=== PATIENT | female | born 1950 | race Caucasian/White ===

== ENCOUNTER 2020-09-12 07:18 | Observation (INO) ==
[2020-09-12] MEDS ORDERED: LIDOCAINE/EPINEPH/TETRACAINE 1 EA SYR EXT STA (07:25)
[2020-09-12] MEDS ORDERED: SODIUM CHLORIDE 0.9% 500 ML IV SCH (07:30)
--- NOTE | 2020-09-12 07:30 | Emergency Department Note ---
History of Present Illness General Chief complaint: Syncope Time Seen by Provider: 09/12/20 07:24 Source: patient and EMS Mode of arrival: EMS Limitations: no limitations History of Present Illness This patient comes in after having a syncopal episode. She was in her usual state of health and had just gone to the bathroom and on the way back to the bed passed out. She does not remember what happened. She hit her head on the floor and has a laceration above the left eye. She thinks her tetanus booster is up-to-date. She is on no blood thinners. She feels fine at present. She had this happen once before. She had diarrhea this morning although tends to have chronic diarrhea. No blood in her stool or melena. Denies chest pain at any point or shortness of breath or palpitations. No abdominal pain. No focal numbness or weakness denies headache. Minimal neck stiffness. No recent illness. 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" Status post tubal ligation Family History Father , 60s Myocardial infarction Coronary heart disease Mother Alzheimer disease Social History Smoking Status: Former smoker Tobacco Type: Cigarettes packs per day: 1.5; Years Smoked: 18; Hx Alcohol Use: Yes Alcohol type: wine Alcohol Intake Frequency: 4 or More x per/Week Alcohol Intake Frequency Comment: 2 - 4oz glasses wine nightly Hx Substance Use: No Preferred Language: Algerian Communication Ability: Effective Registered Nurse Surgical Services Required: No Beliefs That Will Affect Care: None marital status: Current Living Situation: Spouse Other Information That Helps Us Care for You: No Feels Safe at Home: Yes Safety Concerns: Feels Safe At This Time Assistive Devices: Glasses Review of Systems A total of 10 systems reviewed and were otherwise negative Physical Exam Vital Signs Vital Signs - 24 hr 09/12/20 07:21 09/12/20 07:32 09/12/20 07:40 Temperature 36.9 C Temperature Source Oral Pulse Rate 67 65 69 Pulse Rate [Apical] Pulse Rate from SpO2 Sensor 67 65 69 Respiratory Rate 14 16 16 Blood Pressure 145/79 H Blood Pressure [Right Arm] Blood Pressure Mean 96 Blood Pressure Mean [Right Arm] Pulse Oximetry 99 99 98 Oxygen Delivery Method Room Air Sepsis Recent Fever Within 48 Hours No Sepsis New/Unexplained Change in Mental Status N/A Sepsis Action Taken by Nursing No Action Required 09/12/20 07:57 09/12/20 07:58 09/12/20 08:00 Temperature Temperature Source Pulse Rate 80 78 75 Pulse Rate [Apical] Pulse Rate from SpO2 Sensor Respiratory Rate 7 L 18 21 Blood Pressure 143/78 H 143/72 H Blood Pressure [Right Arm] Blood Pressure Mean 92 94 Blood Pressure Mean [Right Arm] Pulse Oximetry Oxygen Delivery Method Sepsis Recent Fever Within 48 Hours Sepsis New/Unexplained Change in Mental Status Sepsis Action Taken by Nursing 09/12/20 08:01 09/12/20 08:10 09/12/20 08:20 Temperature Temperature Source Pulse Rate 76 76 Pulse Rate [Apical] 75 Pulse Rate from SpO2 Sensor Respiratory Rate 16 16 20 Blood Pressure Blood Pressure [Right Arm] 143/78 H Blood Pressure Mean Blood Pressure Mean [Right Arm] 99 Pulse Oximetry 97 Oxygen Delivery Method Room Air Sepsis Recent Fever Within 48 Hours Sepsis New/Unexplained Change in Mental Status Sepsis Action Taken by Nursing 09/12/20 08:30 09/12/20 08:40 09/12/20 08:50 Temperature Temperature Source Pulse Rate 80 80 78 Pulse Rate [Apical] Pulse Rate from SpO2 Sensor Respiratory Rate 16 13 14 Blood Pressure 142/69 H Blood Pressure [Right Arm] Blood Pressure Mean 85 Blood Pressure Mean [Right Arm] Pulse Oximetry Oxygen Delivery Method Sepsis Recent Fever Within 48 Hours Sepsis New/Unexplained Change in Mental Status Sepsis Action Taken by Nursing 09/12/20 09:00 Temperature Temperature Source Pulse Rate 77 Pulse Rate [Apical] Pulse Rate from SpO2 Sensor Respiratory Rate 23 Blood Pressure 148/71 H Blood Pressure [Right Arm] Blood Pressure Mean 98 Blood Pressure Mean [Right Arm] Pulse Oximetry Oxygen Delivery Method Sepsis Recent Fever Within 48 Hours Sepsis New/Unexplained Change in Mental Status Sepsis Action Taken by Nursing General: Well developed well nourished older female who appears in no acute distress, breathing comfortably on room air. Normal speech [place] Coma Score 15 HEENT: Normal cephalic atraumatic with exception of a slightly jagged 3 cm laceration above the left eye and the left eyebrow. Pupils are equal round and reactive to light. Extraocular movements are intact. Oropharynx is pink with moist mucous membranes. No swelling of the mouth lips or tongue. Neck: Supple with a midline trachea. No meningeal signs or stiffness, no JVD or bruits. No Stridor. Chest: Clear to auscultation bilaterally. No wheezes or rhonchi. No increased work of breathing. Heart: Regular rate and rhythm without murmurs or gallops. Abdomen: Soft nontender, nondistended without rebound guarding or rigidity. Extremities: No cyanosis clubbing or edema. No calf tenderness or assymetry Spine/Back. Non tender to palpation. No CVA tenderness Skin: Good turgor without rashes. Neurologic exam: Cranial nerves two through 12 are intact. Motor and sensation are intact and symmetrical throughout. Procedures Laceration Laceration 1: Site: face Side (If applicable): left Size (cm): 3 Description: irregular (It is linear but curved) Depth: simple, single layer Local Anesthetic: other anesthetic (LET Gel) Pre-repair: wound explored, irrigated extensively and deep structures intact Skin layer closed with: nylon Size (cm): 5-0 Number of sutures: 7 Technique: simple, interrupted Course Administered Medications Sodium Chloride (Nss 1000ml) 1,000 mls @ 75 mls/hr IV .[id number] [facility] Stop: 09/13/20 14:54 Last Admin: 09/12/20 12:57 Dose: 75 mls/hr Documented by: [id number] Levothyroxine Sodium (Levothyroxine Sodium 25 Mcg Tablet) 25 mcg PO DAILYBB [facility] Stop: 10/12/20 12:29 Last Admin: 09/12/20 12:59 Dose: 25 mcg Documented by: [id number] Discontinued Medications Sodium Chloride (Nss) 500 mls @ 999 mls/hr IV .Q31M [facility] Stop: 09/12/20 08:00 Last Infusion: 09/12/20 08:08 Dose: 0 mls/hr Documented by: [id number] Admin: 10/26/20 07:31 Dose: 999 mls/hr Documented by: [id number] Ioversol (Optiray 320 125ml) 119 ml IV ONCE ONE Stop: 09/12/20 14:20 Last Admin: 09/12/20 14:19 Dose: 119 ml Documented by: [id number] Lidocaine (Lidocaine/Epineph/Tetracaine 1 Ea Syr) 1 ea EXT NOW STA Stop: 09/12/20 07:26 Last Admin: 09/12/20 07:34 Dose: 1 ea Documented by: [id number] Medical Decision Making Differential Diagnosis Syncope, head trauma, laceration, electrolyte or metabolic abnormality, anemia, sepsis, dehydration, arrhythmia Medical Records Attestation: I reviewed the patient's medical records. Home Medications Current Medication List: was personally reviewed by me Laboratory Data Attestation: I reviewed the patient's lab results. Result diagrams: 09/12/20 06:50 09/12/20 06:50 Lab Results 09/12/20 09/12/20 09/12/20 Range/Units 06:50 06:50 06:50 WBC 4.19 L (4.8-10.8) K/uL RBC 3.98 L (4.2-5.4) M/uL Hgb 14.0 (12.0-16.0) g/dL Hct 41.7 (37-47) % MCV 104.8 H (80-100) fL MCH 35.2 H (25-34) pg MCHC 33.6 (32-36) g/dL RDW Std Deviation 48.6 H (36.4-46.3) fL RDW Coeff of Joao 12.7 (11.5-14.5) % Plt Count 254 (130-400) K/uL MPV 9.7 (7.4-10.4) fL Immature Gran % (Auto) 0.2 % Neut % (Auto) 36.3 % Lymph % (Auto) 53.0 % [place] % (Auto) 5.5 % Eos % (Auto) 4.8 % Baso % (Auto) 0.2 % Neut # (Auto) 1.52 (1.4-6.5) K/uL Lymph # (Auto) 2.22 (1.2-3.4) K/uL [place] # (Auto) 0.23 (0.11-0.59) K/uL Eos # (Auto) 0.20 (0-0.5) K/uL Baso # (Auto) 0.01 (0-0.2) K/uL Immature Gran # (Auto) 0.01 (0.00-0.02) K/uL Sodium 142 (136-145) mmol/L Potassium 3.8 (3.5-5.1) mmol/L Chloride 109 H (98-107) mmol/L Carbon Dioxide 28 (21-32) mmol/L Anion Gap 5.0 (3-11) BUN 15 (7-18) mg/dl Creatinine 0.89 (0.6-1.2) mg/dl Est Cr Clr Drug Dosing 55.8 ml/min Est GFR ( Amer) 75.6 Est GFR (Non-Af Amer) 65.2 BUN/Creatinine Ratio 17.3 (10-20) Glucose 85 (70-99) mg/dl Calcium 8.9 (8.5-10.1) mg/dl Magnesium 2.4 (1.8-2.4) mg/dl Total Bilirubin 0.4 (0.2-1) mg/dl AST 17 (15-37) U/L ALT 21 (12-78) U/L Alkaline Phosphatase 45 (45-117) U/L Troponin I < 0.015 (0-0.045) ng/ml Total Protein 7.8 (6.4-8.2) gm/dl Albumin 3.9 (3.4-5.0) gm/dl Globulin 3.9 (2.5-4.0) gm/dl Albumin/Globulin Ratio 1.0 (0.9-2) Procalcitonin < 0.05 (0-0.5) ng/ml TSH 22.900 H (0.300-4.500) uIu/ml Free T4 0.70 L (0.8-1.6) ng/dl Imaging Data Attestation: I personally reviewed and interpreted this imaging study as follows: Radiologist's Impression: CT head/brain wo con CLINICAL HISTORY: syncope COMPARISON STUDY: 06/21/2020 TECHNIQUE: Axial CT of the brain is performed from the vertex to the skull base. IV contrast was not administered for this examination. A dose lowering technique was utilized adhering to the principles of ALARA. CT DOSE: FINDINGS: No intra or extra-axial mass lesions are visualized. There is no CT evidence of acute cortical infarction. There is no evidence of midline shift. There is no acute hemorrhage. No calvarial fractures are visualized. There are patchy white matter hypodensities likely on a small vessel basis. There is no evidence of pathologic ventricular dilatation. There is no evidence of acute sinusitis There are postsurgical changes of a prior right-sided craniotomy with aneurysm clipping. IMPRESSION: 1. Postsurgical changes of a prior right-sided craniotomy with aneurysm clipping 2. No acute intracranial findings. CT OF THE CERVICAL SPINE WITHOUT CONTRAST CLINICAL HISTORY: Syncope. COMPARISON STUDY: No previous studies for comparison. TECHNIQUE: Helical axial images of the cervical spine were obtained without IV contrast. Sagittal and coronal reconstructions were viewed. Automated exposure control was utilized for the study. A dose lowering technique was utilized adhering to the principles of ALARA. FINDINGS: There is reversal of the normal cervical lordosis. Vertebral body heights are maintained. No acute cervical spine fracture or subluxation is present. There is no prevertebral edema. Facet joints are intact. There is moderate to severe multilevel facet arthrosis, disc space narrowing and osteophytosis within the cervical spine. No intracranial aneurysm clip is better depicted on the head CT. IMPRESSION: No acute cervical spine fracture or subluxation. ECG Data Attestation: I personally reviewed and interpreted this ECG as follows: Indication: + syncope Rate (beats per minute): 69 Rhythm: + normal sinus ECG Intervals/blocks: + Normal QRS, + Normal QT and + Normal IN ECG Evans: + Normal ECG ST segments: + Normal ST segments ECG Findings: + PACs; no PVCs Comparison ECG Date: from (06/21/20) Change: no significant change Head Trauma GCS Score: 15 MDM Narrative This patient comes in as described above. She had a syncopal episode and has head laceration. She was placed on a patient monitor in room A10. Let gel was applied. She was given a 500 cc IV normal saline bolus. CAT scan of the head neck was obtained given her trauma. I also did a chest x-ray multiple blood testing. She was reassessed frequently. CAT scans were unremarkable. She remained stable and asymptomatic. EKG shows PACs but no ischemic changes. Troponin is not elevated. She has nothing suggest sepsis or anemia. She is up-to-date on her tetanus booster and it was last year. Her TSH was markedly elevated and she was found to be hypothyroid however I do not think that likely caused her symptoms. I do think she needs to be admitted/observe for syncope and further treatment and evaluation and monitoring. Continuous cardiac monitoring: Due to her complaint of syncope, an order was placed in the EMR for continuous cardiac monitoring. The patient was noted to be in normal sinus rhythm with a pulse of 85. Impression & Plan Syncope, Laceration, Hypothyroidism, Up to date with tetanus vaccination, Concussion Discharge Plan Visit Data Chief Complaint: Syncope ED Provider: Lc Beatty Discharge Problem: Syncope, Laceration, Hypothyroidism, Up to date with tetanus vaccination, Concussion Patient Disposition: Admitted As Inpatient Discharge Instructions Interventions: ED Discharge Assessment Last Done: 09/12/20 10:58 Discharge Problem: Syncope Qualifiers: Syncope type: unspecified Qualified Code(s): R55 - Syncope and collapse Hypothyroidism Qualifiers: Hypothyroidism type: unspecified Qualified Code(s): E03.9 - Hypothyroidism, unspecified Concussion Qualifiers: Encounter type: initial encounter Loss of consciousness presence/duration: without LOC Qualified Code(s): S06.0X0A - Concussion without loss of consciousness, initial encounter
[2020-09-12 07:37] LABS: Hematocrit (blood only) 41.7 % (37-47); Mean Corpuscular Hemoglobin 35.2 pg (25-34); Mean Corpuscular Hgb Conc 33.6 g/dL (32-36); Mean Corpuscular Volume 104.8 fL (80-100); Mean Platelet Volume 9.7 fL (7.4-10.4); Platelet Count 254 K/uL (130-400); RDW Coefficient of Variation 12.7 % (11.5-14.5); RDW Standard Deviation 48.6 fL (36.4-46.3); Red Blood Count 3.98 M/uL (4.2-5.4); White Blood Count 4.19 K/uL (4.8-10.8)
[2020-09-12 08:01] LABS: Alanine Aminotransferase 21 U/L (12-78); Albumin Level 3.9 gm/dl (3.4-5.0); Aspartate Aminotransferase 17 U/L (15-37); BUN Creatinine Ratio 17.3 (10-20); Blood Urea Nitrogen 15 mg/dl (7-18); Calcium 8.9 mg/dl (8.5-10.1); Carbon Dioxide 28 mmol/L (21-32); Chloride 109 mmol/L (98-107); Creatinine Clr Calc Pharmacy 55.8 ml/min; Est GFR (African American) 75.6; Est GFR (Non-African American) 65.2; Glucose 85 mg/dl (70-99); Magnesium 2.4 mg/dl (1.8-2.4); Potassium 3.8 mmol/L (3.5-5.1); Sodium 142 mmol/L (136-145)
--- NOTE | 2020-09-12 08:02 | CT Scan Report ---
CT head/brain wo con CLINICAL HISTORY: syncope COMPARISON STUDY: 06/21/2020 TECHNIQUE: Axial CT of the brain is performed from the vertex to the skull base. IV contrast was not administered for this examination. A dose lowering technique was utilized adhering to the principles of ALARA. CT DOSE: FINDINGS: No intra or extra-axial mass lesions are visualized. There is no CT evidence of acute cortical infarc tion. There is no evidence of midline shift. There is no acute hemorrhage. No calvarial fractures ar e visualized. There are patchy white matter hypodensities likely on a small vessel basis. There is no evidence of pathologic ventricular dilatation. There is no evidence of acute sinusitis There are postsurgical changes of a prior right-sided craniotomy with aneurysm clipping. IMPRESSION: 1. Postsurgical changes of a prior right-sided craniotomy with aneurysm clipping 2. No acute intracranial findings. ACT 112: Negative or not required by law. Electronically signed by: Boston Taveras M.D. 09/12/2020 8:01 AM
--- NOTE | 2020-09-12 08:06 | CT Scan Report ---
CT OF THE CERVICAL SPINE WITHOUT CONTRAST CLINICAL HISTORY: Syncope. COMPARISON STUDY: No previous studies for comparison. TECHNIQUE: Helical axial images of the cervical spine were obtained without IV contrast. Sagittal a nd coronal reconstructions were viewed. Automated exposure control was utilized for the study. A do se lowering technique was utilized adhering to the principles of ALARA. FINDINGS: There is reversal of the normal cervical lordosis. Vertebral body heights are maintained. N o acute cervical spine fracture or subluxation is present. There is no prevertebral edema. Facet join ts are intact. There is moderate to severe multilevel facet arthrosis, disc space narrowing and oste ophytosis within the cervical spine. No intracranial aneurysm clip is better depicted on the head CT. IMPRESSION: No acute cervical spine fracture or subluxation. ACT 112: Negative or not required by law. Electronically signed by: Matthew Cunningham M.D. 09/12/2020 8:05 AM
[2020-09-12 08:11] LABS: Basophils # (auto) 0.01 K/uL (0-0.2); Basophils % (auto) 0.2 %; Eosinophils % (auto) 4.8 %; Immature Granulocytes # (auto) 0.01 K/uL (0.00-0.02); Immature Granulocytes % (auto) 0.2 %; Lymphocytes # (auto) 2.22 K/uL (1.2-3.4); Monocytes # (auto) 0.23 K/uL (0.11-0.59); Monocytes % (auto) 5.5 %; Neutrophils # (auto) 1.52 K/uL (1.4-6.5); Neutrophils % (auto) 36.3 %
[2020-09-12 08:13] LABS: Alkaline Phosphatase 45 U/L (45-117); Bilirubin,Total 0.4 mg/dl (0.2-1); Globulin 3.9 gm/dl (2.5-4.0); Total Protein 7.8 gm/dl (6.4-8.2); Troponin I < 0.015 ng/ml (0-0.045)
--- NOTE | 2020-09-12 08:28 | XRay Report ---
XR chest 1V portable CLINICAL HISTORY: syncope COMPARISON STUDY: 02/19/2014 FINDINGS: The cardiac and mediastinal contours are normal. There is no evidence of focal pulmonary co nsolidation. There is no evidence of failure. No pleural effusions are visualized.[The patient appear s hyperinflated. There are minimal left basilar atelectatic changes. There is a 5 mm left basilar opa city, statistically postinflammatory IMPRESSION: 1. Hyperinflation 2. No evidence of focal pulmonary consolidation 3. 5 mm left basilar opacity likely postinflammatory ACT 112: Negative or not required by law. Electronically signed by: Boston Taveras M.D. 09/12/2020 8:27 AM
--- NOTE | 2020-09-12 09:22 | History & Physical Report ---
Date of Service September 12, 2020 Assessment & Plan (1) Syncope: (2) Orthostatic hypotension: This is a 70-year-old female with significant past medical history of intracranial hemorrhage status post craniotomy with aneurysmal clip 1996, depression with anxiety, subclinical hypothyroidism, lumbar spinal stenosis, osteopenia who presents to ED secondary to syncopal episode prior to arrival. In ED orthostatic vital signs lying sitting standing BP: 145/69, 130/80, 95/75; Pulse 74, 79, 85 admit to med tele monitor on tele for arrhythmia IVF 75cc/hr x 2L - monitor orthostatic vital signs BID CTA head/neck due to hx of cerebral aneurysm repeat CT head in 24hrs EEG Echocardiogram repeat ecg in a.m., monitor QTC - slightly prolonged at 456ms neuro check q4h initiate levothyroxine (3) Hypothyroidism: TSH 22, free T4 low at 0.7 possible acute phase reactant, will start levothyroxine 25mcg daily repeat TSH in a.m. will need follow up TSH in 2-4 weeks with PCP reports 24lb weight gain and increased fatigue over past year (4) Abnormal CXR: 5mm L basilar opacity pt afebrile, wbc 4.19, no acute signs of infection obtain covid screen prior to admission will need follow up imaging to ensure resolution, consider outpt CT hx of tobacco use in past (5) Laceration: topical wound care Tetanus UTD, last 06/2019 (6) Depression: mood stable, continue venlafaxine (7) Alcohol dependence, daily use: 2 - 4oz glasses of wine nightly AWSS protocol, monitor for withdrawal sx (8) DVT prophylaxis: SCD/TEDS consider daily chemoprophylaxis if admitted > 24 hours, encourage ambulation Disposition: admit to [facility] tele Follow up: PCP Dr. Seaman upon discharge Pt was seen and examined in collaboration with Dr. Lawrence, please see addendum History of Present Illness Chief Complaint: Syncopal episode prior to arrival. Primary Care Provider: Yun Seaman, This is a 70-year-old female with significant past medical history of intracranial hemorrhage status post craniotomy with aneurysmal clip 1996, depression with anxiety, subclinical hypothyroidism, lumbar spinal stenosis, osteopenia who presents to ED secondary to syncopal episode prior to arrival. She got up to walk dog and went to the bathroom. When she was trying to go back to bed she had a syncopal episode without prodrome. She did fall and hit her head and has laceration to forehead. Does not recall events. found her beside the commode. She apparently hit her forehead on the door. She lost control of bowel and had diarrhea. She did not have any prodromal symptoms including diaphoresis, chest pain, nausea, dizziness or lightheadedness. She had similar event in June where she had syncopal episode after getting up from the bathroom and she was told her blood pressure was likely low. She denies any recent illness, fever, chills, sweats, lightheadedness, dizziness, chest pain, shortness breath, palpitations, nausea, vomiting, abdominal pain. She has been having daily diarrhea for approximately 1 week. It is only one episode a day, but she does lose control. Denies any melena or hematochezia. She denies any known exposure to the coronavirus. She does admit a 24 pound weight gain since approximately 1 year ago. She also admits generalized fatigue. Denies dry skin, nail changes or constipation. She denies any prior history of hypothyroidism requiring any thyroid supplementation. Her mood is otherwise been stable. She does states she does occasionally get lightheaded and dizzy when going from sitting to standing, "but I know to take my time." She admits this was very different where she did not experience any lightheadedness or dizziness. Currently she feels well and is at bedside. A telephone interview was performed while Covid screening was pending. In ED patient made hemodynamically stable. Lab work notable for H&H 14.0 41.7, WBC 4.19k, platelet 254, K3.8, BUN 15, creatinine 29, mag 2.4 TSH 22.9, free T4 0.70. Head CT revealed postsurgical changes of prior right-sided craniotomy with aneurysm clipping but otherwise no acute intracranial finding. Patchy white matter hypodensities likely on a small vessel basis. Head CT negative for acute cervical spine fracture or subluxation. Chest x-ray with no acute cardiopulmonary pathology but did reveal 5 mm left basilar opacity likely postinflammatory. In ED she did have repair of laceration as well as 500 IVF. No Orthostatic vital signs were obtained. Allergies Allergy/AdvReac Type Severity Reaction Status Date / Time No Known Allergies Allergy Unverified 09/12/20 08:00 Home Medications Home Medications Medication Instructions Recorded Confirmed Type venlafaxine 75 mg PO DAILY 09/12/20 09/12/20 History Past Med/Surg History Medical History Depression History of subarachnoid hemorrhage Hypothyroidism Osteopenia Spinal stenosis of lumbar region Surgical History History of colonoscopy Status post clamping of cerebral aneurysm "1996" Status post tubal ligation Family History Father , 60s Myocardial infarction Coronary heart disease Mother Alzheimer disease Social History Smoking Status: Former smoker Tobacco Type: Cigarettes packs per day: 1.5; Years Smoked: 18; Hx Alcohol Use: Yes Alcohol type: wine Alcohol Intake Frequency: 4 or More x per/Week Alcohol Intake Frequency Comment: 2 - 4oz glasses wine nightly Hx Substance Use: No Preferred Language: Mongolian Communication Ability: Effective Pleater Required: No Beliefs That Will Affect Care: None marital status: Current Living Situation: Spouse Other Information That Helps Us Care for You: No Feels Safe at Home: Yes Safety Concerns: Feels Safe At This Time Assistive Devices: Glasses Review of Systems Review of Systems: All systems reviewed & are unremarkable except as noted in HPI & below Physical Exam Physical Exam: Constitutional: WD/WN, vitals as above, NAD, sitting up in bed, pleasant, conversing easily Head: Normocephalic, L forehead Laceration suture repair with good closure, no surrounding erythema, medial canthus ecchymosis Eyes: PERRL, conjunctivae normal, anicteric sclerae ENMT: external ear and nose normal, oropharynx normal Neck: trachea midline, no thyromegaly normal visual inspection Respiratory: normal respiratory effort, lungs clear to auscultation, no wheeze, rales, rhonchi. Normal insp/exp effort, no accessory muscle use Cardiovascular: RRR, 1/6 CHARISMA noted RUSB, no edema Vessels: no JVD or carotid bruit Chest: normal inspection of chest Abdomen: normal bowel sounds, soft, nontender, no hepatosplenomegaly Musculoskeletal: no cyanosis or clubbing, extremities motor strength 5/5 Skin: no rashes, warm and dry normal turgor Neurologic: PERRL, EOMI, accommodation nl, no face palsy, no dysarthria CN's II-XI intact bilaterally and moves all extremities Psychiatric: A+Ox3, euthymic affect : deferred Results & Data Results & Data ([facility]) Vital Signs (Past 12 Hours) Vital Signs Temp Pulse Pulse Resp BP BP Pulse Ox 09/12/20 08:01 75 16 143/78 H 97 09/12/20 07:21 36.9 C 68 16 145/79 H 98 Laboratory Results Short CBC 09/12/20 09/12/20 Range/Units 06:50 06:50 WBC 4.19 L (4.8-10.8) K/uL Hgb 14.0 (12.0-16.0) g/dL Hct 41.7 (37-47) % Plt Count 254 (130-400) K/uL Creatinine 0.89 (0.6-1.2) mg/dl BMP 09/12/20 06:50 Sodium 142 Potassium 3.8 Chloride 109 H Carbon Dioxide 28 BUN 15 Creatinine 0.89 Glucose 85 Calcium 8.9 Cardiac Enzymes 09/12/20 Range/Units 06:50 Troponin I < 0.015 (0-0.045) ng/ml Liver Function 09/12/20 Range/Units 06:50 Total Bilirubin 0.4 (0.2-1) mg/dl AST 17 (15-37) U/L ALT 21 (12-78) U/L Alkaline Phosphatase 45 (45-117) U/L Albumin 3.9 (3.4-5.0) gm/dl Diagnostic Findings Head CT: FINDINGS: No intra or extra-axial mass lesions are visualized. There is no CT evidence of acute cortical infarction. There is no evidence of midline shift. There is no acute hemorrhage. No calvarial fractures are visualized. There are patchy white matter hypodensities likely on a small vessel basis. There is no evidence of pathologic ventricular dilatation. There is no evidence of acute sinusitis There are postsurgical changes of a prior right-sided craniotomy with aneurysm clipping. IMPRESSION: 1. Postsurgical changes of a prior right-sided craniotomy with aneurysm clipping 2. No acute intracranial findings. CXR: IMPRESSION: 1. Hyperinflation 2. No evidence of focal pulmonary consolidation 3. 5 mm left basilar opacity likely postinflammatory Cspine CT: IMPRESSION: No acute cervical spine fracture or subluxation. Medications Administered Discontinued Medications Sodium Chloride (Nss) 500 mls @ 999 mls/hr IV .Q31M LETY Stop: 09/12/20 08:00 Last Infusion: 09/12/20 08:08 Dose: 0 mls/hr Documented by: [id number] Admin: 09/12/20 07:31 Dose: 999 mls/hr Documented by: [id number] Lidocaine (Lidocaine/Epineph/Tetracaine 1 Ea Syr) 1 ea EXT NOW STA Stop: 09/12/20 07:26 Last Admin: 09/12/20 07:34 Dose: 1 ea Documented by: [id number] ECG Rate (beats per minute): 69 Rhythm: normal sinus Findings: + PAC and + prolonged QT (QTC 459ms) Code Status & VTE Plan Code Status Full Code VTE Prophylaxis Plan VTE Prophylaxis will be ordered: Yes Supervising Physician Co-Signing Physician Notes Patient is a 70-year-old female with history of intracranial hemorrhage, aneurysmal clipping in 1996, lumbar spinal stenosis and other medical problems presents with a history of syncopal episode this morning. Patient admits to having head trauma secondary to syncopal episode but was unsure of the events. She denies any dizziness, leg weakness, vertigo, change in vision prior to the episode. She did not had bowel incontinence. Fall resulted in forehead laceration which needed sutures while in ED. She admits to having diarrhea since last 1 week. She denies taking any antibiotics recently. Also states having history of orthostatic hypotension and an episode of syncope in June. Please review HPI for complete details of presentation. On exam patient is moderately built, nourished, normocephalic,+ traumatic with forehead laceration and sutures, lungs are clear to auscultation, S1-S2, no murmur, abdomen soft, nontender, no pedal edema, grossly no focal neurological deficits. Patient is admitted for management of syncope, orthostatic hypotension. Imaging studies negative for any acute findings. EEG showed no signs of seizure activity. Echo pending. Appreciate neurology input. Neurochecks requested. We will plan to repeat CT head tomorrow. Monitor in telemetry for any arrhythmias. Will give IV fluids given history of diarrhea. Will recheck orthostatics. Started on levothyroxine for hypothyroidism. Chest x-ray showed left basilar opacity, procalcitonin within normal limits. No signs of infection. Consider antibiotics if develops any signs of infection. Alcohol dependence. Started on thiamine, folic acid. Monitor for any withdrawal. Check stool studies for diarrhea. I personally reviewed the record. Patient is interviewed and examined at bedside. Patient's care is coordinated with Radha Fernandez PA-C. Please refer to the documentation above for details of patient's presentation and for discussion of other issues. (1) Syncope Syncope type: unspecified Qualified Code(s): R55 - Syncope and collapse
[2020-09-12] MEDS ORDERED: ALUMINUM/MAGNESIUM SUSP 30 ML UDC PO PRN (12:04)
[2020-09-12] MEDS ORDERED: ACETAMINOPHEN 325 MG TAB PO PRN (12:04)
[2020-09-12] MEDS ORDERED: POLYETHYLENE (MIRALAX) 17 GM PACK PO PRN (12:04)
[2020-09-12] MEDS ORDERED: MAGNESIUM HYDROXIDE SUSP 30 ML UDC PO PRN (12:04)
[2020-09-12] MEDS ORDERED: PNEUMOCOCCAL POLYSACCHARIDES 25 MCG/0.5 ML VIAL/SYR IM ONE (12:42)
[2020-09-12] MEDS ORDERED: INFLUENZA ADMINISTRATION CHARGE ONE (12:42)
[2020-09-12] MEDS ORDERED: INFLUENZA VIRUS QUAD VACCINE 0.5 ML SYR IM ONE (12:42)
[2020-09-12] MEDS ORDERED: PNEUMOCOCCAL ADMINISTRATION CHARGE ONE (12:42)
[2020-09-12] MEDS: SODIUM CHLORIDE 0.9% 1000ML 1,000 ML IV SCH (12:57)
[2020-09-12] MEDS: LEVOTHYROXINE SODIUM 25 MCG TABLET PO SCH (12:59)
--- NOTE | 2020-09-12 13:17 | Electroencephalogram ---
EEG Procedure Note Date of Service September 12, 2020 Start / End Times Start Time: 12:30 End Time: 12:50 Referring Physician Radha Fernandez PA-C History A 70 year old woman with syncope. EEG performed for evaluation of epileptiform activity. Home Medication List Home Medications Medication Instructions Recorded Confirmed Type venlafaxine 75 mg PO DAILY 09/12/20 09/12/20 History Inpatient Medication List Sodium Chloride (Nss 1000ml) 1,000 mls @ 75 mls/hr IV .[id number] LETY Stop: 09/13/20 14:54 Last Admin: 09/12/20 12:57 Dose: 75 mls/hr Documented by: [id number] Levothyroxine Sodium (Levothyroxine Sodium 25 Mcg Tablet) 25 mcg PO DAILYBB [facility] Stop: 10/12/20 12:29 Last Admin: 09/12/20 12:59 Dose: 25 mcg Documented by: [id number] Discontinued Medications Sodium Chloride (Nss) 500 mls @ 999 mls/hr IV .Q31M LETY Stop: 09/12/20 08:00 Last Infusion: 09/12/20 08:08 Dose: 0 mls/hr Documented by: [id number] Admin: 09/12/20 07:31 Dose: 999 mls/hr Documented by: [id number] Lidocaine (Lidocaine/Epineph/Tetracaine 1 Ea Syr) 1 ea EXT NOW STA Stop: 09/12/20 07:26 Last Admin: 09/12/20 07:34 Dose: 1 ea Documented by: [id number] Description This is a 21 electrode EEG with a single channel dedicated to limited EKG. The electrodes were placed in accordance with the International 10-20 system. REPORT: At the onset of the EEG the patient is awake. The background is symmetric and well organized. The posterior dominant rhythm is 9-10 Hz. There is a low amplitude beta activity in the frontal head regions. Photic stimulation does not induce any abnormalities. Drowsiness is characterized by increase theta activity, reduced blink rate, and decreased myogenic artifact. IMPRESSION: This is a normal awake and drowsy EEG. There is no evidence of focal slowing or epileptiform activity.
[2020-09-12] MEDS ORDERED: OPTIRAY 320 125ml IV ONE (14:19)
--- NOTE | 2020-09-12 14:31 | CT Scan Report ---
CT angio neck with con CLINICAL HISTORY: syncope, hx of aneurysm COMPARISON STUDY: No previous studies for comparison. TECHNIQUE: CT angiography was performed from the aortic arch to the skull base. MIP imaging was perfo rmed. The patient was scanned in a dynamic helical fashion during intravenous administration of 120 c c of Optiray 320. A dose lowering technique was utilized adhering to the principles of ALARA. CT DOSE: 496.62 mGy.cm Technique: CT angiogram of the carotid and vertebral arteries was obtained using intravenous contrast and 3-D reconstruction. NASCET criteria was utilized. Findings: The right carotid revealed no evidence of aneurysm and no evidence of dissection. There is no evidenc e of hemodynamic significant stenosis. There are postsurgical changes of a right temporal craniotomy with aneurysm clips. This will be reported separately and a CT angiogram of the head report The left carotid revealed no evidence of hemodynamic significant stenosis. There is no evidence of an eurysm. There is no evidence of dissection. There is no evidence of hemodynamically significant vertebral stenosis. There is no evidence of verte bral dissection. IMPRESSION: No evidence of hemodynamically significant carotid or vertebral artery stenosis. No evidence of disse ction. ACT 112: Negative or not required by law. Electronically signed by: Boston Taveras M.D. 09/12/2020 2:30 PM
--- NOTE | 2020-09-12 14:57 | CT Scan Report ---
CTA ANGIOGRAPHY OF THE HEAD CLINICAL HISTORY: syncope, hx of aneurysm COMPARISON STUDY: Head CT June 21, 2020 and September 12, 2020 7:52 AM. TECHNIQUE: Helical axial images of the head were obtained following uneventful intravenous administr ation of 120 cc of Optiray 320. Sagittal and coronal reconstructions were viewed as well as maximal i ntensity projections on an independent 3-D workstation. Automated exposure control was utilized for the study. A dose lowering technique was utilized adhering to the principles of ALARA. FINDINGS: No acute intracranial hemorrhage, midline shift or mass effect is present. Ventricular syst em is normal. The basilar cisterns are patent. There are no extra-axial collections. There are stable postoperative findings from right-sided craniotomy. Aneurysm clip along the lateral aspect of the durham praclinoid right ICA is noted. No residual aneurysm is identified. No intracranial aneurysm is identi fied on this examination. The right A1 segment is hypoplastic. There is persistence of the righ t posterior cerebral artery. No central vessel occlusion is noted. There is no intraluminal thrombus. Oral sinuses appear patent. IMPRESSION: 1. Expected findings following aneurysm clipping within the supraclinoid right ICA. No residual aneur ysm. 2. No intracranial aneurysm identified. No central vessel occlusion. ACT 112: Negative or not required by law. Electronically signed by: Matthew Cunningham M.D. 09/12/2020 2:56 PM
--- NOTE | 2020-09-12 15:00 | Ultrasound Report ---
BILATERAL CAROTID DOPPLER STUDY HISTORY: syncope COMPARISON: Neck CTA 09/12/2020. TECHNIQUE: Real-time, grayscale, and color Doppler sonography of the carotid arteries was performed. Imaging reviewed in the transverse and longitudinal planes. All measurements were calculated based on NASCET criteria. FINDINGS: Antegrade flow is seen in the bilateral vertebral arteries. The brachial pressures were not obtained. No significant atherosclerotic plaque. The peak systolic velocity within the right ICA is 124 cm/s.. The right systolic ratio is 1.0. The peak systolic velocity within the left ICA is 118 cm/s. The left systolic ratio is 1.2. IMPRESSION: No hemodynamically significant stenosis seen within the carotid arteries. ACT 112: Negative or not required by law. Electronically signed by: Dustin Mayo M.D. 09/12/2020 2:59 PM
--- NOTE | 2020-09-12 15:36 | Consultation Report ---
DATE OF CONSULTATION: 09/12/2020 CHIEF COMPLAINT: Syncope. HISTORY OF PRESENT ILLNESS: This is a 70-year-old woman with a remote history of intracranial hemorrhage, status post craniotomy with aneurysmal clipping in 1996, history of anxiety and depression, and subclinical hypothyroidism, admitted from the Emergency Department this morning due to a syncopal episode. The episode occurred prior to arrival. She got up this morning to walk her dog and went to the bathroom. Upon going back to bed, she lost consciousness without any warning. She did fall and hit her head and had a laceration to her forehead. She is amnestic to the event. found her bedside near the commode. She apparently hit her forehead on the door. She did lose control of her bowel and bladder. She had diarrhea. She denies any diaphoresis, chest pain, nausea, dizziness or lightheadedness prior to the event. She did have a similar event in June where she had a syncopal event after getting up from the bathroom and she was told her blood pressure was low. She denies any recent illness, fever, chills, sweats, lightheadedness, dizziness, chest pain, shortness of breath, palpitations, nausea, vomiting or abdominal pain. She has been having daily diarrhea for approximately 1 week. She occasionally notes feeling dizzy or lightheaded upon standing; however, she is adamant that this did not occur today. In the Emergency Department she was stable. Her hemoglobin was 14. Head CT showed postsurgical changes from prior right-sided craniotomy with aneurysmal clipping. Chest x-ray was negative. She did receive repair of the laceration in the Emergency Department. Orthostatic blood pressures were performed upon admission with a systolic blood pressure 145/69, and then 95/75 upon standing. A routine EEG was also ordered upon admission, which was normal. Neurology was consulted for further evaluation. ALLERGIES: No known drug allergies. HOME MEDICATIONS: Effexor 75 mg daily. PAST MEDICAL HISTORY: Depression, history of subarachnoid hemorrhage, hypothyroidism, osteopenia, lumbar stenosis. PAST SURGICAL HISTORY: History of colonoscopy, status post clamping of a cerebral aneurysm in 1996, tubal ligation. FAMILY HISTORY: Her father is , had a myocardial infarction as well as coronary artery disease. Her mother had Alzheimer's disease and is also . SOCIAL HISTORY: She is a former smoker. She did smoke 1.5 packs per day for 18 years. She does drink alcohol including wine. She may have 4 drinks per week. No prior history of polysubstance abuse. REVIEW OF SYSTEMS: All systems reviewed and are unremarkable except as noted above in the HPI. PHYSICAL EXAMINATION: VITAL SIGNS: Blood pressure is 138/81, pulse was 90, respiratory rate was 20, temperature was 36.6 degrees Celsius and the patient was 96% oxygenation on room air. CONSTITUTIONAL: The patient appears developed. Her face has a laceration on her forehead. Otherwise, her head is normocephalic. Her eyes are normal. Normal eyelids. Normal conjunctivae. NECK: Supple. Respiratory effort is normal. She has normal cardiac pulses. ABDOMEN: Nondistended. SKIN: No skin rash. NEURO: Her mood is normal. She is awake, alert, oriented to person, place and time. Her attention is normal. Her knowledge is appropriate to her language. Her comprehension is intact and she is following commands. Her speech is normal. No visual defect on confrontation. Pupils are symmetric. Extraocular muscles are intact. Facial sensation intact. There is no facial asymmetry. Her hearing is intact. Her palate is symmetric. Shoulder shrug is intact. Tongue is midline without laceration or abrasion. No ataxia with [id number] testing. Gait examination was deferred. Sensation is intact to light touch. Muscle tone is normal. Motor examination shows 5/5 throughout. Reflexes are 2+ at the knees, no ankle clonus. DIAGNOSTIC TESTING AND LABORATORY VALUES: WBC 4.19, hemoglobin 14.0, platelet count 254. Sodium 142, potassium 3.8, chloride 109, carbon dioxide 28, BUN was 15, creatinine 0.89, glucose 85. Liver enzymes normal. Troponin was negative. TSH was 22.9, free T4 was 0.70. IMAGING: Head CT noncontrast postsurgical changes of a prior right craniotomy with aneurysmal clipping. No acute intracranial findings. Head and neck CTA showed expected findings following aneurysm clipping with supraclinoid right ICA, no no intracranial aneurysm identified. No 3-vessel occlusion. There was no evidence of hemodynamically significant carotid or vertebral artery stenosis. No evidence of dissection. Carotid ultrasound showed no hemodynamically significant stenosis. ASSESSMENT AND PLAN: A 70-year-old woman with a history of a subarachnoid hemorrhage, status post aneurysm clipping admitted with a presumed syncopal event. Orthostatic blood pressure testing was positive suggestive of an orthostatic event. Clinical history is also suggestive of a micturition or orthostatic event. May have been precipitated by diarrhea. Routine EEG performed today was normal. CTA head and CTA neck is negative for any large vessel occlusion or carotid dissection. We will defer on starting antiepileptic medication at this point. Would obtain MRI brain w/wo if aneurysm clip is MRI compatible. Agree with cardiac work up including telemetry and TTE. We will defer to primary team for treatment of orthostatic blood pressures. Discussed conservative measures including salt intake and plenty of water. Would recommend discontinuing Effexor by taking 37.5 mg daily for 7-days then stop. Otherwise, she can follow up with neurology in 8 weeks. Would recommend repeat routine EEG as outpatient also. Please contact me with any additional questions or concerns. Otherwise I will plan to follow up wiht the patient after her routine EEG as outpatient. YARELI
[2020-09-12 18:43] LABS: Appearance Urine Clear (Clear); Bacteria Urine Automated Negative (Negative); Bilirubin Urine Negative (Negative); Blood Urine Trace (Negative); Cast Urine Automated 0 /lpf (0-5); Color Urine Yellow; Epithelial Cell Urine Auto 0-5 /lpf (0-5); Glucose Urine UA Negative (Negative); Ketones Urine 1+ (Negative); Leukocyte Esterase Urine Negative (Negative); Nitrite Urine Negative (Negative); Protein Urine Negative (Negative); RBC Urine Automated 0-4 /hpf (0-4); Specific Gravity Urine > 1.045 (1.000-1.030); Urobilinogen Urine Negative (Negative); WBC Urine Automated 0 /hpf (0-5)
[2020-09-12] MEDS: THIAMINE HCL 100 MG TAB PO SCH (19:09)
[2020-09-12] MEDS: FOLIC ACID 1 MG TAB PO SCH (19:09)
--- NOTE | 2020-09-12 22:29 | Electrocardiogram Report ---
Test Reason : Blood Pressure : / mmHG Vent. Rate : 069 BPM Atrial Rate : 069 BPM P-R Int : 170 ms QRS Dur : 088 ms QT Int : 428 ms P-R-T Axes : 086 070 073 degrees QTc Int : 458 ms Sinus rhythm with Premature atrial complexes Cannot rule out Anterior infarct (cited on or before 12-SEP-2020) Abnormal ECG When compared with ECG of 21-JUN-2020 06:52, No significant change Confirmed by Octavio Marshall ([id number]) on 09/12/2020 10:29:13 PM Referred By: REFERRED SELF Confirmed By:Octavio Marshall
[2020-09-13] MEDS: SODIUM CHLORIDE 0.9% 1000ML 1,000 ML IV SCH (02:34)
[2020-09-13] MEDS: LEVOTHYROXINE SODIUM 25 MCG TABLET PO SCH (05:51)
[2020-09-13] MEDS: FOLIC ACID 1 MG TAB PO SCH (07:54)
[2020-09-13] MEDS: THIAMINE HCL 100 MG TAB PO SCH (07:54)
[2020-09-13 08:55] LABS: Hematocrit (blood only) 39.9 % (37-47); Hemoglobin 13.1 g/dL (12.0-16.0); Mean Corpuscular Hemoglobin 34.7 pg (25-34); Mean Corpuscular Hgb Conc 32.8 g/dL (32-36); Mean Corpuscular Volume 105.6 fL (80-100); Mean Platelet Volume 9.9 fL (7.4-10.4); Platelet Count 284 K/uL (130-400); Red Blood Count 3.78 M/uL (4.2-5.4); White Blood Count 5.24 K/uL (4.8-10.8)
[2020-09-13] MEDS ORDERED: VENLAFAXINE HCL XR 75 MG CAPXR PO SCH (09:00)
--- NOTE | 2020-09-13 09:09 | CT Scan Report ---
CT head/brain wo con CLINICAL HISTORY: Syncope. History of aneurysm. COMPARISON STUDY: 09/12/2020 TECHNIQUE: Axial CT of the brain is performed from the vertex to the skull base. IV contrast was not administered for this examination. A dose lowering technique was utilized adhering to the principles of ALARA. CT DOSE: 614.27 mGy.cm FINDINGS: No intra or extra-axial mass lesions are visualized. There is no CT evidence of acute cortical infarc tion. There is no evidence of midline shift. There is no evidence of acute hemorrhage. There are post surgical changes of a right-sided craniotomy with right supraclinoid aneurysm clipping. There are patchy white matter hypodensities likely on a small vessel basis. There is no evidence of pathologic ventricular dilatation. There is no evidence of acute sinusitis IMPRESSION: 1. Postsurgical changes of a prior right-sided craniotomy with aneurysm clipping 2. No acute intracranial findings ACT 112: Negative or not required by law. Electronically signed by: Boston Taveras M.D. 09/13/2020 9:07 AM
[2020-09-13 09:25] LABS: Albumin Level 3.6 gm/dl (3.4-5.0); BUN Creatinine Ratio 16.5 (10-20); Creatinine Clr Calc Pharmacy 59.7 ml/min; Est GFR (African American) 83.4; Potassium 3.7 mmol/L (3.5-5.1)
[2020-09-13 09:36] LABS: Bilirubin,Total 0.8 mg/dl (0.2-1); Globulin 3.7 gm/dl (2.5-4.0); Thyroid Stimulating Hormone 14.3 uIu/ml (0.300-4.500); Total Protein 7.3 gm/dl (6.4-8.2)
[2020-09-13 09:52] LABS: T4 Free Thyroxine 1.03 ng/dl (0.8-1.6)
--- NOTE | 2020-09-13 14:02 | Hospitalist Progress Note ---
Date of Service September 13, 2020 Assessment & Plan (1) Syncope: Patient is a 70 yr female with H/O Intracranial hemorrhage status post craniotomy with aneurysmal clip 1996, depression with anxiety, subclinical hypothyroidism, lumbar spinal stenosis, osteopenia who presents to ED secondary to syncopal episode resulting in head trauma. Syncope Like secondary to Orthostatic Hypotension due to Venlafaxine --CT Head:Chronic and postoperative change. No acute intracranial abnormality. --Repeat CT Head:Postsurgical changes of a prior right-sided craniotomy with aneurysm clipping. No acute intracranial findings --Head CTA:Expected findings following aneurysm clipping within the supraclinoid right ICA. No residual aneurysm. No intracranial aneurysm identified. No central vessel occlusion. --Neck CTA:No evidence of hemodynamically significant carotid or vertebral artery stenosis. No evidence of dissection. --EEG:This is a normal awake and drowsy EEG. There is no evidence of focal slowing or epileptiform activity. --ECHO: Atrial septal aneurysm incidentally noted, with small hemodynamically insignificant shunt. Left ventricle is normal in size. EF greater than 70%. Grade 1 diastolic dysfunction. --Positive Orthostatics --No issues on Monitor --Titrate off of Venlafaxine (decreased from 75 mg daily to 37.5 mg daily ) and start Duloxetine 20 mg daily --Appreciate Neurology input --Needs follow up with Neurology upon discharge Atrial septal aneurysm with small hemodynamically insignificant shunt Start on aspirin 81 mg daily Advised to follow-up with cardiology as outpatient. Consider event monitor as outpatient (2) Orthostatic hypotension: Management as above (3) Hypothyroidism: Reports 24lb weight gain and increased fatigue over past year Hypothyroidism TSH 22.9 Free T4 0.70 Started on levothyroxine 25 mcg daily Repeat thyroid function tests as outpatient (4) Abnormal CXR: 5mm L basilar opacity Negative COVID screen Asymptomatic Normal procalcitonin Advised Repeat imaging as outpatient (5) Laceration: topical wound care Tetanus UTD, last 06/2019 (6) Depression: mood stable Cross titrate venlafaxine to duloxetine (7) Alcohol dependence, daily use: 2 - 4oz glasses of wine nightly AWSS protocol, monitor for withdrawal sx (8) DVT prophylaxis: SCD/TEDS Disposition: Discharge home today Admission and Anticipated Discharge Date Admission Date: September 12, 2020 Subjective Neuro exam bedside States feeling well today Offers no complaints Family at bedside No diarrhea today Also denies chest pain, dyspnea, dizziness, nausea, abdominal pain Review of Systems Review of Systems: All systems reviewed & are unremarkable except as noted in HPI & below Physical Exam Physical Exam: Physical Exam: Vitals signs as noted above General Appearance:Moderately built and nourished, no apparent distress Head: normocephalic, + traumatic, forehead laceration and sutures Eyes: normal inspection, EOMI Neck: supple, Trachea midline Respiratory/Chest: Normal breath sounds, CTA Cardiovascular: S1, S2, No murmur Abdomen/GI:Soft, Non tender, Bowel sounds present Extremities/Musculoskelatal:normal inspection, no edema Neurologic/Psych:AAOX3, grossly no focal neurological deficits Skin: normal color, warm Results & Data Results & Data ([facility]) Vital Signs (Past 12 Hours) Vital Signs Temp Pulse Pulse Resp BP Pulse Ox 09/13/20 07:25 74 09/13/20 07:15 36.8 C 72 18 153/73 H 97 09/13/20 04:03 36.7 C 77 20 156/77 H 96 Laboratory Results Short CBC 09/13/20 Range/Units 08:14 WBC 5.24 (4.8-10.8) K/uL Hgb 13.1 (12.0-16.0) g/dL Hct 39.9 (37-47) % Plt Count 284 (130-400) K/uL BMP 09/13/20 08:14 Sodium 139 Potassium 3.7 Chloride 105 Carbon Dioxide 26 BUN 14 Creatinine 0.82 Glucose 89 Calcium 9.0 Liver Function 09/13/20 Range/Units 08:14 Total Bilirubin 0.8 (0.2-1) mg/dl AST 16 (15-37) U/L ALT 20 (12-78) U/L Alkaline Phosphatase 41 L (45-117) U/L Albumin 3.6 (3.4-5.0) gm/dl Urine 09/12/20 Range/Units Unknown Urine Color Yellow Urine Appearance Clear (Clear) Urine pH 6.0 (4.5-7.5) Ur Specific [place] > 1.045 H (1.000-1.030) Urine Protein Negative (Negative) Urine Glucose (UA) Negative (Negative) (1) Syncope Syncope type: unspecified Qualified Code(s): R55 - Syncope and collapse
[2020-09-13] MEDS ORDERED: DOXYCYCLINE HYCLATE 100 MG CAP PO SCH (14:10)
--- NOTE | 2020-09-13 14:15 | Discharge Summary ---
Date of Service September 13, 2020 Admission HPI Per Admitting Provider This is a 70-year-old female with significant past medical history of intracranial hemorrhage status post craniotomy with aneurysmal clip 1996, depression with anxiety, subclinical hypothyroidism, lumbar spinal stenosis, osteopenia who presents to ED secondary to syncopal episode prior to arrival. She got up to walk dog and went to the bathroom. When she was trying to go back to bed she had a syncopal episode without prodrome. She did fall and hit her head and has laceration to forehead. Does not recall events. found her beside the commode. She apparently hit her forehead on the door. She lost c ontrol of bowel and had diarrhea. She did not have any prodromal symptoms including diaphoresis, chest pain, nausea, dizziness or lightheadedness. She had similar event in June where she had syncopal episode after getting up from the bathroom and she was told her blood pressure was likely low. She denies any recent illness, fever, chills, sweats, lightheadedness, dizziness, chest pain, shortness breath, palpitations, nausea, vomiting, abdominal pain. She has been having daily diarrhea for approximately 1 week. It is only one episode a day, but she does lose control. Denies any melena or hematochezia. She denies any known exposure to the coronavirus. She does admit a 24 pound weight gain since approximately 1 year ago. She also admits generalized fatigue. Denies dry skin, nail changes or constipation. She denies any prior history of hypothyroidism requiring any thyroid supplementation. Her mood is otherwise been stable. She does states she does occasionally get lightheaded and dizzy when going from sitting to standing, "but I know to take my time." She admits this was very different where she did not experience any lightheadedness or dizziness. Currently she feels well and is at bedside. A telephone interview was performed while Covid screening was pending. In ED patient made hemodynamically stable. Lab work notable for H&H 14.0 41.7, WBC 4.19k, platelet 254, K3.8, BUN 15, creatinine 29, mag 2.4 TSH 22.9, free T4 0.70. Head CT revealed postsurgical changes of prior right-sided craniotomy with aneurysm clipping but otherwise no acute intracranial finding. Patchy white matter hypodensities likely on a small vessel basis. Head CT negative for acute cervical spine fracture or subluxation. Chest x-ray with no acute cardiopulmonary pathology but did reveal 5 mm left basilar opacity likely postinflammatory. In ED she did have repair of laceration as well as 500 IVF. No Orthostatic vital signs were obtained. Admission Exam Per Admitting Provider Physical Exam Physical Exam: Constitutional: WD/WN, vitals as above, NAD, sitting up in bed, pleasant, conversing easily Head: Normocephalic, L forehead Laceration suture repair with good closure, no surrounding erythema, medial canthus ecchymosis Eyes: PERRL, conjunctivae normal, anicteric sclerae ENMT: external ear and nose normal, oropharynx normal Neck: trachea midline, no thyromegaly normal visual inspection Respiratory: normal respiratory effort, lungs clear to auscultation, no wheeze, rales, rhonchi. Normal insp/exp effort, no accessory muscle use Cardiovascular: RRR, 1/6 CHARISMA noted RUSB, no edema Vessels: no JVD or carotid bruit Chest: normal inspection of chest Abdomen: normal bowel sounds, soft, nontender, no hepatosplenomegaly Musculoskeletal: no cyanosis or clubbing, extremities motor strength 5/5 Skin: no rashes, warm and dry normal turgor Neurologic: PERRL, EOMI, accommodation nl, no face palsy, no dysarthria CN's II-XI intact bilaterally and moves all extremities Psychiatric: A+Ox3, euthymic affect : deferred Principal Diagnosis Syncope Orthostatic hypotension Atrial septal aneurysm Hypothyroidism Left basilar lung opacity Discharge Data Allergies Allergy/AdvReac Type Severity Reaction Status Date / Time No Known Allergies Allergy Unverified 09/12/20 08:00 Consultations 09/12/20 09:08 ED Decision to Admit Stat 09/12/20 12:43 Consult Neurology Routine Procedures Performed --CT Head:Chronic and postoperative change. No acute intracranial abnormality. --Repeat CT Head:Postsurgical changes of a prior right-sided craniotomy with aneurysm clipping. No acute intracranial findings --Head CTA:Expected findings following aneurysm clipping within the supraclinoid right ICA. No residual aneurysm. No intracranial aneurysm identified. No central vessel occlusion. --Neck CTA:No evidence of hemodynamically significant carotid or vertebral artery stenosis. No evidence of dissection. --EEG:This is a normal awake and drowsy EEG. There is no evidence of focal slowing or epileptiform activity. --ECHO: Atrial septal aneurysm incidentally noted, with small hemodynamically insignificant shunt. Left ventricle is normal in size. EF greater than 70%. Grade 1 diastolic dysfunction. Ordered Studies 09/12/20 07:24 CT cervical spine wo con Stat CT head/brain wo con Stat 09/12/20 12:03 CT angio head w con Routine CT angio neck with con Routine 09/12/20 14:30 US carotid doppler BI Routine 09/13/20 09:00 CT head/brain wo con Routine Hospital Course (1) Syncope: Patient is a 70 yr female with H/O Intracranial hemorrhage status post craniotomy with aneurysmal clip 1996, depression with anxiety, subclinical hypothyroidism, lumbar spinal stenosis, osteopenia who presents to ED secondary to syncopal episode resulting in head trauma. Syncope Like secondary to Orthostatic Hypotension due to Venlafaxine --CT Head:Chronic and postoperative change. No acute intracranial abnormality. --Repeat CT Head:Postsurgical changes of a prior right-sided craniotomy with aneurysm clipping. No acute intracranial findings --Head CTA:Expected findings following aneurysm clipping within the supraclinoid right ICA. No residual aneurysm. No intracranial aneurysm identified. No central vessel occlusion. --Neck CTA:No evidence of hemodynamically significant carotid or vertebral artery stenosis. No evidence of dissection. --EEG:This is a normal awake and drowsy EEG. There is no evidence of focal slowing or epileptiform activity. --ECHO: Atrial septal aneurysm incidentally noted, with small hemodynamically insignificant shunt. Left ventricle is normal in size. EF greater than 70%. Grade 1 diastolic dysfunction. --Positive Orthostatics --No issues on Monitor --Titrate off of Venlafaxine (decreased from 75 mg daily to 37.5 mg daily ) and start Duloxetine 20 mg daily --Appreciate Neurology input --Needs follow up with Neurology upon discharge Atrial septal aneurysm with small hemodynamically insignificant shunt Start on aspirin 81 mg daily Advised to follow-up with cardiology as outpatient. Consider event monitor as outpatient (2) Orthostatic hypotension: Management as above (3) Hypothyroidism: Reports 24lb weight gain and increased fatigue over past year Hypothyroidism TSH 22.9 Free T4 0.70 Started on levothyroxine 25 mcg daily Repeat thyroid function tests as outpatient (4) Abnormal CXR: 5mm L basilar opacity Negative COVID screen Asymptomatic Normal procalcitonin Advised Repeat imaging as outpatient (5) Laceration: topical wound care Tetanus UTD, last 06/2019 (6) Depression: mood stable Cross titrate venlafaxine to duloxetine (7) Alcohol dependence, daily use: 2 - 4oz glasses of wine nightly AWSS protocol, monitor for withdrawal sx (8) DVT prophylaxis: SCD/TEDS Disposition: Discharge home today Total Time Total Time Spent Total Time Spent (In Minutes): 39 minutes Discharge Plan Discharge Items Patient Disposition: Home - Self-Care Reason For Visit: SYNCOPE Discharge Diagnosis: Syncope Orthostatic hypotension Atrial septal aneurysm Hypothyroidism Left basilar lung opacity Activity: Per Instructions section Exercise/Sports: Gradually increase as tolerated Non-emergency contact: Primary Care Provider, [employer] Process Project Engineer and Neurologist Call non-emergency contact if: you have any medication questions, your symptoms worsen, your pain is not controlled, your pain is worsening, your pain is unusual for you, you have a fever, your wound has increased redness, your wound has increased drainage and your wound pain has increased Follow-up/Referrals: Yun Seaman DO [Primary Care Provider] - (Date & Time 09/20/2020 2:10 PM Provider Yun Seaman DO Department Internal Medicine [facility] ) Diet: Heart Healthy Addtl Attending Provider Instructions: Follow-up with your primary care physician on 09/20/2020 2:10 PM Follow-up with your neurologist Trini Manzanares PA-C on November 07, 2020 at 11:20 AM Follow-up with your supervisor functional testing in 4 weeks as recommended Consider getting event monitor (ZIO PATCH) as outpatient for further evaluation to rule out any heart rhythm problems Complete antibiotic course doxycycline 100 mg twice a day for 5 days Start taking aspirin 81 mg daily as advised Discuss with your physician for further titration off of venlafaxine you are started on duloxetine for management of her depression... As venlafaxine could be contributing to orthostatic hypotension. Get repeat Blood test (Thyroid function test) in 4-6 weeks and follow-up with your physician for results for further adjustment of your levothyroxine dose Get repeat chest x-ray in 4 to 6 weeks to monitor for resolution of left basilar lung opacity Seek immediate medical attention if your symptoms reoccur or worsen Pending Studies at Discharge: No Stand-Alone Forms: My [facility], Smoking Cessation Medications and DC Order Prescriptions: New venlafaxine 37.5 mg Capsule,Extended Release 24hr 37.5 mg PO DAILY Qty: 30 RF: 0 doxycycline hyclate 100 mg Capsule 100 mg PO BID Qty: 10 RF: 0 aspirin 81 mg Tablet,Delayed Release (Dr/Ec) 81 mg PO QAM 30 Days Qty: 30 RF: 1 levothyroxine [Synthroid] 25 mcg Tablet 25 mcg PO DAILYBB Qty: 30 RF: 0 duloxetine 20 mg Capsule,Delayed Release(Dr/Ec) 20 mg PO QAM Qty: 30 RF: 0 Discontinued venlafaxine 75 mg capsule,extended release 24hr 75 mg PO DAILY RF: 0 Discharge Orders: Discharge Order (Routine); Ordered 09/13/20 Ordered By: Alexandre Lawrence Admission Data Admit Date/Time: 09/12/20 09:06 Attending Provider: Alexandre Lawrence Admit Provider: Alexandre Lawrence Primary Care Provider: Yun Seaman Other Providers: Alexandre Lawrence ; Yayo Bonds Other Interventions: Discharge Summary Assessment (RN) Last Done: 09/13/20 14:30
--- NOTE | 2020-09-14 05:55 | Electrocardiogram Report ---
Test Reason : Blood Pressure : / mmHG Vent. Rate : 080 BPM Atrial Rate : 080 BPM P-R Int : 170 ms QRS Dur : 088 ms QT Int : 394 ms P-R-T Axes : 078 019 071 degrees QTc Int : 454 ms Normal sinus rhythm Possible Anterior infarct (cited on or before 12-SEP-2020) Abnormal ECG When compared with ECG of 12-SEP-2020 07:21, Premature atrial complexes are no longer Present Confirmed by Octavio Marshall ([id number] on 09/14/2020 5:54:27 AM Referred By: REFERRED SELF Confirmed By:Octavio Marshall
[2020-09-14] MEDS ORDERED: ASPIRIN 81 MG ECTAB PO SCH (09:00)
[2020-09-14] MEDS ORDERED: VENLAFAXINE HCL XR 37.5 MG CAPXR PO SCH (09:00)
[2020-09-14] MEDS ORDERED: DULoxetine HCL 20 MG CAP PO SCH (09:00)
== END 2020-09-13 14:54 | disposition home or self-care (01) ==
LOC: 2N 07:18 → ED 07:18 → 2N 10:58